=== PATIENT | female | born 1995 ===

== ENCOUNTER 2017-04-10 14:47 | Emergency (ER) | payer SELFPAY ==
[2017-04-10 14:55] VITALS: O2SAT 99
--- NOTE | 2017-04-10 16:21 | C.PDOC ---
History Of Present Illness 04/10/2017 Rosalia Mccoy is a 21 year old female, who presents to the emergency department complaining of scattered rash, described as itchy and painful, for the past five months. Patient's mother states they went [place] of the [place] to treat the skin irritation and was diagnosed as an allergic reaction, however no relief was made after treatment with medication. Patient mother notes the rash began on the vagina area and scattered down her legs. Mother also reports that pus drains from the rashes when they erupt. Patient denies chest pain, shortness of breath, headache, fever, chills, cough, nausea, vomiting, diarrhea, abdominal pain, dizziness or other complaints. Time Seen by Provider: 04/10/17 15:37 Chief Complaint (Nursing): Abnormal Skin Integrity History Per: Patient, Family History/Exam Limitations: language barrier ([employer]: Ashly Stone) Onset/Duration Of Symptoms: Worse Since (five months ago) Current Symptoms Are (Timing): Worse Location Of Injury: Right: Labia, Leg, Left: Labia, Leg Quality Of Symptoms: Painful, Itching, Draining Past Medical History Reviewed: Historical Data, Nursing Documentation, Vital Signs Vital Signs: Last Vital Signs Temp 98.5 F 04/10/17 17:19 Pulse 79 04/10/17 17:19 Resp 20 04/10/17 17:19 BP 123/77 04/10/17 17:19 Pulse Ox 99 04/10/17 17:19 - Medical History PMH: HTN Family History: States: No Known Family Hx - Social History Hx Alcohol Use: No Hx Substance Use: No - Immunization History Hx Tetanus Toxoid Vaccination: No Hx Influenza Vaccination: No Hx Pneumococcal Vaccination: No Review Of Systems Except As Marked, All Systems Reviewed And Found Negative. Constitutional: Negative for: Fever Cardiovascular: Negative for: Chest Pain Respiratory: Negative for: Shortness of Breath Gastrointestinal: Negative for: Nausea, Vomiting, Abdominal Pain Skin: Positive for: Rash (scattered) Neurological: Negative for: Dizziness Physical Exam - Physical Exam Appears: Well, Non-toxic, No Acute Distress Skin: Normal Color, Warm, Dry, Rash (pustular rash and excoriation, with erythema on the bilateral upper and lower extremities and abdomen) Head: Atraumatic, Normacephalic Eye(s): bilateral: Normal Inspection, PERRL, EOMI Nose: Normal Oral Mucosa: Moist, No Drooling Tongue: Normal Appearing, No Lesions Lips: Normal Appearing, No Lesions Throat: Normal, No Erythema, No Exudate Neck: Normal, Supple Cardiovascular: Rhythm Regular, No Friction Rub, No Murmur Respiratory: Normal Breath Sounds, No Stridor, No Wheezing Back: Normal Inspection Extremity: Normal ROM Neurological/Psych: Oriented x3, Normal Speech, Normal Motor Gait: Steady ED Course And Treatment O2 Sat by Pulse Oximetry: 99 (room air) Pulse Ox Interpretation: Normal Medical Decision Making Medical Decision Making: Finger stick is 101 and sugar is normal. Will treat for hidradenitis suppurativa and possible cellulitis. Disposition - Disposition Referrals: Isabel Pacheco MD [Medical Doctor] - [facility] [Outside] Disposition: HOME/ ROUTINE Disposition Time: 17:07 Condition: GOOD Additional Instructions: Wash the wound twice a day. Apply cream. Do not scratch. Follow up with the medical doctor within 1-2 days. Return if worsened. Prescriptions: Doxycycline Hyclate 100 mg PO BID #28 cap Mupirocin 2% Cream [Bactroban 2%] 30 gm EXT BID #3 tube Instructions: MRSA (Methicillin Resistant Staphylococcus Aureus) (DC), Cellulitis (DC) Forms: [employer] (Faroese) Print Language: MAORI - Clinical Impression Clinical Impression: Hidradenitis suppurativa, Cellulitis - Scribe Statement The provider has reviewed the documentation as recorded by the Scribe 04/10/2017 Scribe Attestation: Ashly Stone MD Scribe Attestation: All medical record entries made by the Scribe were at my direction and personally dictated by me. I have reviewed the chart and agree that the record accurately reflects my personal performance of the history, physical exam, medical decision making, and the department course for this patient. I have also personally directed, reviewed, and agree with the discharge instructions and disposition.
[2017-04-10 17:22] VITALS: BP 123/77; PULSE 79; RESP 20; TEMP 98.5
== END 2017-04-10 17:22 | disposition home or self-care (01) ==
LOC: C.ER 14:47
DX: L73.2 Hidradenitis suppurativa (principal); L03.90 Cellulitis, unspecified

== ENCOUNTER 2017-11-18 11:33 | Emergency (ER) | payer OTHER ==
[2017-11-18 11:42] VITALS: O2SAT 98
--- NOTE | 2017-11-18 12:15 | C.PDOC ---
History Of Present Illness 21-year-old female, PMHx includes hypertension, presents to the emergency department with complaints of an itchy rash all over her body for the past 4 days. Patient denies any new foods, lotions, soaps, detergents or new medications. She has no known allergies. No fever or chills, no throat discomfort or shortness of breath. Has a Hx of similar in past. Time Seen by Provider: 11/18/17 11:45 Chief Complaint (Nursing): Abnormal Skin Integrity History Per: Patient History/Exam Limitations: no limitations Onset/Duration Of Symptoms: Days Current Symptoms Are (Timing): Still Present Past Medical History Reviewed: Historical Data, Nursing Documentation, Vital Signs Vital Signs: Last Vital Signs Temp 98.1 F 11/18/17 13:01 Pulse 74 11/18/17 13:01 Resp 20 11/18/17 13:01 BP 108/71 11/18/17 13:01 Pulse Ox 98 11/18/17 13:01 - Medical History PMH: HTN Family History: States: No Known Family Hx - Social History Hx Alcohol Use: No Hx Substance Use: No - Immunization History Hx Tetanus Toxoid Vaccination: No Hx Influenza Vaccination: No Hx Pneumococcal Vaccination: No Review Of Systems Except As Marked, All Systems Reviewed And Found Negative. Constitutional: Negative for: Fever ENT: Negative for: Nose Congestion, Throat Swelling Respiratory: Negative for: Cough, Shortness of Breath Skin: Positive for: Rash Physical Exam - Physical Exam Appears: Non-toxic, No Acute Distress Skin: Warm, Dry, Rash (Scattered pink/purple papules diffusely to flexor surface of skin. Sparing palms and soles) Head: Atraumatic, Normacephalic Eye(s): bilateral: Normal Inspection, PERRL, EOMI Nose: Normal Oral Mucosa: Moist Lips: Normal Appearing Neck: Normal ROM, Supple Chest: Symmetrical, No Tenderness Cardiovascular: Rhythm Regular, No Friction Rub, No Murmur Respiratory: Normal Breath Sounds, No Decreased Breath Sounds, No Accessory Muscle Use, No Rales, No Rhonchi, No Wheezing Gastrointestinal/Abdominal: Soft, No Tenderness Back: Normal Inspection, No CVA Tenderness Extremity: Normal ROM, No Deformity, No Swelling Neurological/Psych: Oriented x3, Normal Speech, Normal Motor Gait: Steady ED Course And Treatment O2 Sat by Pulse Oximetry: 98 (RA) Pulse Ox Interpretation: Normal Disposition - Disposition Referrals: [facility] [Outside] Disposition: HOME/ ROUTINE Disposition Time: 12:56 Condition: GOOD Additional Instructions: Follow up with the medical doctor within 1-2 days. Return if worsened. Prescriptions: Clotrimazole/Betamethasone [Lotrisone] 15 gm EXT BID #3 tube DiphenhydrAMINE [Benadryl] 25 mg PO QID #28 cap Instructions: Eczema (Atopic Dermatitis) Forms: [email or web address] (Telugu) Print Language: CHADIAN - POA Present On Arrival: None - Clinical Impression Clinical Impression: Eczema - Scribe Statement The provider has reviewed the documentation as recorded by the Scribe (Magdy Paz) All medical record entries made by the Scribe were at my direction and personally dictated by me. I have reviewed the chart and agree that the record accurately reflects my personal performance of the history, physical exam, medical decision making, and the department course for this patient. I have also personally directed, reviewed, and agree with the discharge instructions and disposition.
[2017-11-18 13:02] VITALS: BP 108/71; PULSE 74; RESP 20; TEMP 98.1
== END 2017-11-18 13:05 | disposition home or self-care (01) ==
LOC: C.ER 11:33
DX: L30.9 Dermatitis, unspecified (principal)

== ENCOUNTER 2017-12-25 09:49 | Emergency (ER) | payer OTHER ==
[2017-12-25 10:11] VITALS: RESP 16
--- NOTE | 2017-12-25 11:23 | C.PDOC ---
History Of Present Illness 22 year old female presents to the ED for evaluation of a chronic rash to her arms, armpits, legs and thighs which began when she moved [place] ago. She notes the area is pruritic. Patient was evaluated in this ED for these symptoms in the past and was given Benadryl. Patient denies fever, chills , nausea, vomiting. Time Seen by Provider: 12/25/17 10:19 Chief Complaint (Nursing): Abnormal Skin Integrity History Per: Patient History/Exam Limitations: no limitations Onset/Duration Of Symptoms: Other (1 year ) Current Symptoms Are (Timing): Still Present Additional History Per: Patient Past Medical History Reviewed: Historical Data, Nursing Documentation, Vital Signs Vital Signs: Last Vital Signs Temp 97.6 F 12/25/17 11:31 Pulse 67 12/25/17 11:31 Resp 16 12/25/17 11:31 BP 116/77 12/25/17 11:31 Pulse Ox 98 12/25/17 14:36 - Medical History PMH: HTN Surgical History: No Surg Hx Family History: States: Unknown Family Hx - Social History Hx Alcohol Use: No Hx Substance Use: No - Immunization History Hx Tetanus Toxoid Vaccination: No Hx Influenza Vaccination: No Hx Pneumococcal Vaccination: No Review Of Systems Constitutional: Negative for: Fever, Chills Gastrointestinal: Negative for: Nausea, Vomiting Skin: Positive for: Rash (chronic, to arms, armpits, legs and thighs ) Physical Exam - Physical Exam Appears: Non-toxic, No Acute Distress, Other (morbidly obese ) Skin: Rash (papular, to torsoe, arms and legs with some dry patches on back. sparing of hands and feet ) Head: Atraumatic, Normacephalic Eye(s): bilateral: Normal Inspection Ear(s): Bilateral: Normal Nose: Normal, No Discharge Oral Mucosa: Moist Throat: Normal, No Erythema, No Exudate Neck: Supple Chest: Symmetrical, No Deformity, No Tenderness Cardiovascular: Rhythm Regular, No Murmur Respiratory: Normal Breath Sounds, No Rales, No Rhonchi, No Wheezing Gastrointestinal/Abdominal: Soft, No Tenderness, No Guarding, No Rebound, Other (obese ) Extremity: Normal ROM, Capillary Refill (less than 2 seconds ) Neurological/Psych: Oriented x3, Normal Speech, Normal Cognition ED Course And Treatment O2 Sat by Pulse Oximetry: 98 (on RA) Pulse Ox Interpretation: Normal Medical Decision Making Medical Decision Making: Progress: On reassessment, patient is resting comfortably, showing no signs of respiratory distress and is stable for discharge. Patient is advised to follow up with PMD within 1-2 days for further evaluation and/or return to the ED if sx persist or worsen. Disposition Counseled Patient/Family Regarding: Need For Followup, Rx Given - Disposition Referrals: [facility] [Outside] Disposition: HOME/ ROUTINE Disposition Time: 11:21 Condition: STABLE Additional Instructions: Siga en la clinica. Prescriptions: DiphenhydrAMINE [Benadryl] 50 mg PO TID #9 cap Instructions: Skin Rash (DC) Forms: Gen Discharge Inst Mexican, [employer] (Mexican) - Clinical Impression Clinical Impression: Rash in adult - Scribe Statement The provider has reviewed the documentation as recorded by the Scribe (Janeth Salcedo) Provider Attestation: All medical record entries made by the Scribe were at my direction and personally dictated by me. I have reviewed the chart and agree that the record accurately reflects my personal performance of the history, physical exam, medical decision making, and the department course for this patient. I have also personally directed, reviewed, and agree with the discharge instructions and disposition.
[2017-12-25 11:32] VITALS: BP 116/77; PULSE 67; TEMP 97.6
[2017-12-25 14:37] VITALS: O2SAT 98
== END 2017-12-25 11:42 | disposition home or self-care (01) ==
LOC: C.ER 09:49
DX: R21 Rash and other nonspecific skin eruption (principal)

== ENCOUNTER 2018-10-13 11:42 | Emergency (ER) | payer OTHER ==
[2018-10-13 12:00] VITALS: RESP 18; TEMP 98.6; O2SAT 100
[2018-10-13] MEDS ORDERED: Sodium Chloride 0.9% 1,000 ML IV ONE (12:19)
[2018-10-13 12:46] LABS: BASO % 0.4 % (0.0-2.0); EOS # 0.1 K/uL (0.0-0.7); EOS % 1.2 % (0.0-4.0); HEMOGLOBIN 12.7 g/dL (11.0-16.0); LYMPH # 2.7 K/uL (1.0-4.3); LYMPH % 26.1 % (20.0-40.0); MEAN CELL VOLUME 89.4 fL (81.0-99.0); MEAN CORPUSCULAR HEMOGLOBIN 29.9 pg (27.0-31.0); MEAN CORPUSCULAR HGB CONC 33.4 g/dL (33.0-37.0); MEAN PLATELET VOLUME 8.1 fL (7.2-11.7); MONO # 0.4 K/uL (0.0-0.8); MONO % 3.5 % (0.0-10.0); NEUT # 7.1 K/uL (1.8-7.0); NEUT % 68.8 % (50.0-75.0); NRBC % 0.1 % (0.0-2.0); RBC 4.26 Mil/uL (3.80-5.20); RED CELL DISTRIBUTION WIDTH 13.8 % (11.5-14.5); WHITE BLOOD COUNT 10.4 K/uL (4.8-10.8)
[2018-10-13 12:51] LABS: HCG,QUALITATIVE URINE NEGATIVE (NEGATIVE)
[2018-10-13 12:55] LABS: SQUAMOUS EPITHIAL 4 /hpf (0-5); URINE BACTERIA RARE (<OCC)
[2018-10-13 12:56] LABS: URINE BILIRUBIN NEGATIVE (NEGATIVE); URINE BLOOD 3+ (NEGATIVE); URINE CLARITY Hazy (Clear); URINE COLOR Yellow (YELLOW); URINE GLUCOSE (UA) NORMAL (Normal); URINE LEUKOCYTE ESTERASE NEG Leu/uL (Negative); URINE PROTEIN NEGATIVE (NEGATIVE); URINE UROBILINOGEN NORMAL mg/dL (0.2-1.0)
[2018-10-13 13:01] LABS: ALB/GLOB RATIO 1.3 (1.0-2.1); ALBUMIN 4.6 g/dL (3.5-5.0); ALT/SGPT 16 U/L (9-52); AST/SGOT 30 U/L (14-36); BLOOD UREA NITROGEN 12 mg/dL (7-17); CALCIUM 9.1 mg/dl (8.6-10.4); GFR NON-AFRICAN AMERICAN > 60
[2018-10-13 13:30] VITALS: BP 152/82; PULSE 82
--- NOTE | 2018-10-13 16:38 | C.PDOC ---
History Of Present Illness 22-year-old female presents to the ED for evaluation after experiencing heavy menses for the last two weeks. Patient reports havinhg "a lot of blood clots" and states that she has been using a lot of maxi pads per day. Shes also complaining of some pelvic cramping and states that she feels lightheaded and generalized weakness. She denies any possibility of . She denies fever, dysuria, nausea, vomiting, diarrhea. Time Seen by Provider: 10/13/18 11:55 Chief Complaint (Nursing): Female Genitourinary History Per: Patient History/Exam Limitations: no limitations Onset/Duration Of Symptoms: Other (two weeks ) Current Symptoms Are (Timing): Still Present Quality Of Discomfort: Cramping Associated Symptoms: denies: Fever, Chills, Nausea, Vomiting, Urinary Symptoms Abnormal Vaginal Bleeding: Yes Last Menstral Period: current, for two weeks Past Medical History Reviewed: Historical Data, Nursing Documentation, Vital Signs Vital Signs: Last Vital Signs Temp 98.6 F 10/13/18 13:29 Pulse 82 10/13/18 13:29 Resp 18 10/13/18 13:29 BP 152/82 H 10/13/18 13:29 Pulse Ox 100 10/13/18 13:29 - Medical History PMH: HTN Surgical History: No Surg Hx Family History: States: No Known Family Hx - Social History Hx Alcohol Use: No Hx Substance Use: No - Immunization History Hx Tetanus Toxoid Vaccination: No Hx Influenza Vaccination: No Hx Pneumococcal Vaccination: No Review Of Systems Constitutional: Positive for: Weakness. Negative for: Fever, Chills Gastrointestinal: Negative for: Nausea, Vomiting, Abdominal Pain, Diarrhea Genitourinary: Positive for: Vaginal Bleeding, Pelvic Pain. Negative for: Dysuria Skin: Negative for: Rash Neurological: Positive for: Other (lightheadedness, weakness) Physical Exam - Physical Exam Appears: Well, Non-toxic, No Acute Distress Skin: Normal Color, Warm, Dry, No Pale, No Rash Head: Normacephalic Eye(s): bilateral: Normal Inspection Oral Mucosa: Moist Neck: Supple Cardiovascular: Rhythm Regular Respiratory: Normal Breath Sounds, No Rales, No Rhonchi, No Wheezing Gastrointestinal/Abdominal: Normal Exam, Bowel Sounds, Soft, No Tenderness Extremity: Normal ROM Neurological/Psych: Oriented x3 ED Course And Treatment - Laboratory Results Result Diagrams: 10/13/18 12:42 10/13/18 12:42 Lab Results: Total Bilirubin 0.3 mg/dL (0.2-1.3) 10/13/18 12:42 AST 30 U/L (14-36) 10/13/18 12:42 ALT 16 U/L (9-52) 10/13/18 12:42 Alkaline Phosphatase 61 U/L (38-126) 10/13/18 12:42 Total Protein 8.2 g/dL (6.3-8.3) 10/13/18 12:42 Albumin 4.6 g/dL (3.5-5.0) 10/13/18 12:42 Globulin 3.6 gm/dL (2.2-3.9) 10/13/18 12:42 Albumin/Globulin Ratio 1.3 (1.0-2.1) 10/13/18 12:42 Urine Color Yellow (YELLOW) 10/13/18 12:42 Urine Clarity Hazy (Clear) 10/13/18 12:42 Urine pH 5.0 (5.0-8.0) 10/13/18 12:42 Ur Specific Campbell 1.019 (1.003-1.030) 10/13/18 12:42 Urine Protein Negative mg/dL (NEGATIVE) 10/13/18 12:42 Urine Glucose (UA) Normal mg/dL (Normal) 10/13/18 12:42 Urine Ketones Negative mg/dL (NEGATIVE) 10/13/18 12:42 Urine Blood 3+ (NEGATIVE) H 10/13/18 12:42 Urine Nitrate Negative (NEGATIVE) 10/13/18 12:42 Urine Bilirubin Negative (NEGATIVE) 10/13/18 12:42 Urine Urobilinogen Normal mg/dL (0.2-1.0) 10/13/18 12:42 Ur Leukocyte Esterase Neg Isma/uL (Negative) 10/13/18 12:42 Urine WBC (Auto) 1 /hpf (0-5) 10/13/18 12:42 Urine RBC (Auto) 1 /hpf (0-3) 10/13/18 12:42 Ur Squamous Epith Cells 4 /hpf (0-5) 10/13/18 12:42 Urine Bacteria Rare (<OCC) 10/13/18 12:42 Urine HCG, Qual Negative (NEGATIVE) 10/13/18 12:42 Urine HCG, Qual Negative (NEGATIVE) 10/13/18 12:42 O2 Sat by Pulse Oximetry: 100 (on RA) Pulse Ox Interpretation: Normal Progress Note: Blood work, UA, Upreg ordered and reviewed. Patient given IV NS bolus, PO Tylenol. Reevaluation Time: 13:30 Reassessment Condition: Improved (Patient reassessed, is resting comfortably and states she feels better. Blood work WNL, neg for anemia. Patient given Rx for Provera and was instructed to follow up with video system repairer withn 1 week without fail. She understands she should return to ED if symptoms worsen.) Disposition Counseled Patient/Family Regarding: Studies Performed, Diagnosis, Need For Followup - Disposition Referrals: [facility] [Outside] [facility] [Outside] Disposition: HOME/ ROUTINE Disposition Time: 13:30 Condition: STABLE Additional Instructions: FOLLOW UP WITH FUSION OPERATOR WITHIN 1 WEEK USE MEDICATION DIRECTED RETURN TO EMERGENCY ROOM IF SYMPTOMS BECOME WORSEN SEGUIR CON OB / DIRECTOR STUDENT UNION DENTRO DE 1 SEMANA UTILICE MEDICAMENTOS SHERRI SE DIRIGE VUELVA A LA SHRADDHA DE EMERGENCIA SI LOS SNTOMAS SE EMPARAN Prescriptions: Medroxyprogesterone Acetate [Provera] 2.5 mg PO DAILY #20 tablet Instructions: Heavy Periods (DC) Forms: [email or web address] (Angolan) Print Language: ISRAELI - Clinical Impression Clinical Impression: Menorrhagia - Scribe Statement The provider has reviewed the documentation as recorded by the Scribe (Janeth Salcedo) Provider Attestation: All medical record entries made by the Scribe were at my direction and p ersonally dictated by me. I have reviewed the chart and agree that the record accurately reflects my personal performance of the history, physical exam, medical decision making, and the department course for this patient. I have also personally directed, reviewed, and agree with the discharge instructions and disposition.
== END 2018-10-13 13:30 | disposition home or self-care (01) ==
LOC: C.ER 11:42
DX: N92.0 Excessive and frequent menstruation with regular cycle (principal); I10 Essential (primary) hypertension
CPT/HCPCS: 80053; 81001; 84703; 85025; 96360; 99284; J7030

== ENCOUNTER → 2018-10-24 15:11 | Emergency (ER) | payer SELFPAY | END | disposition left against medical advice (07) | LOC: C.ER 15:11 | DX: Z02.89 Encounter for other administrative examinations (principal); R51 Headache ==

== ENCOUNTER 2018-10-26 11:39 | Emergency (ER) | payer OTHER ==
[2018-10-26 11:43] VITALS: RESP 18; TEMP 98.8; O2SAT 100
--- NOTE | 2018-10-26 12:11 | C.PDOC ---
History Of Present Illness 22 year old female with history of obesity presents to ED with complaint of right knee pain , left sided back pain, and right sided headache for the last 3 weeks. Patient describes the knee pain as sharp, located behind the right knee, and has difficulty bearing weight secondary to pain. She describes the back pain as dull, located in left thoracic para-spinal muscles, and worse with movement. Headache is throbbing and located at the right temporal area. Patient says she has also been experiencing dysuria. Patient states that she needs a new prescription for her glasses and that her headache worsens when she wears her glasses. She is not taking any medication for the pain. 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 She denies any trauma or injury, vision changes, dizziness, SOB, chest pain, hemoptysis, abdominal pain, nausea, vomiting, diarrhea, bowel or bladder incontinence, saddle anesthesia, calf swelling, calf pain, pleuritic pain, cough, jaw claudication, hematuria. 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) Onset/Duration Of Symptoms: Other (3 weeks) Current Symptoms Are (Timing): Still Present - Knee Currently Unable To: Bear Weight Past Medical History Reviewed: Historical Data, Nursing Documentation, Vital Signs Vital Signs: Last Vital Signs Temp 98.8 F 10/26/18 11:41 Pulse 100 H 10/26/18 11:41 Resp 18 10/26/18 11:41 BP 141/84 10/26/18 11:41 Pulse Ox 100 10/26/18 11:41 - Medical History PMH: HTN Surgical History: No Surg Hx Family History: States: Unknown Family Hx - Social History Hx Alcohol Use: No Hx Substance Use: No - Immunization History Hx Tetanus Toxoid Vaccination: No Hx Influenza Vaccination: No Hx Pneumococcal Vaccination: No Review Of Systems Constitutional: Negative for: Fever, Chills, Weakness Eyes: Negative for: Vision Change Cardiovascular: Negative for: Chest Pain, Palpitations Respiratory: Negative for: Cough, Shortness of Breath, Hemoptysis Gastrointestinal: Negative for: Nausea, Vomiting, Abdominal Pain Genitourinary: Positive for: Dysuria. Negative for: Incontinence, Hematuria Musculoskeletal: Positive for: Back Pain (dull, located on the left thoracic paraspinal muscles), Leg Pain (behind the right knee) Neurological: Positive for: Headache (throbbing, located on the right temporal area). Negative for: Weakness, Numbness, Dizziness Physical Exam - Physical Exam Appears: Well, Non-toxic, No Acute Distress, Other (morbidly obese) Skin: Normal Color, Warm, Dry Head: Atraumatic, Normacephalic, No Tenderness Eye(s): bilateral: Normal Inspection, PERRL, EOMI Nose: Normal Oral Mucosa: Moist Neck: Normal ROM, Supple Chest: Symmetrical, No Deformity Cardiovascular: Rhythm Regular, No Murmur Respiratory: Normal Breath Sounds, No Accessory Muscle Use, No Rales, No Rhonchi, No Wheezing Gastrointestinal/Abdominal: Soft, No Tenderness Back: Normal Inspection, No CVA Tenderness, No Vertebral Tenderness, Paraspinal Tenderness (left paraspinal muscles) Extremity: Normal ROM, Tenderness (right knee in the medial popliteal fossa), No Calf Tenderness, Capillary Refill (<2 seconds), No Deformity Extremity: Right: Painful To Bear Weight (right knee) Pulses: Left Radial: Normal, Right Radial: Normal, Left Dorsalis Pedis: Normal, Right Dorsalis Pedis: Normal Neurological/Psych: Oriented x3, Normal Speech, Normal Cognition, Normal Motor, Normal Sensation Gait: Steady (without assistance) ED Course And Treatment O2 Sat by Pulse Oximetry: 100 (RA) - Other Rad Ribs and Chest X-ray X-Ray: Interpreted by Me, Viewed By Me Interpretation: Accession No. : [id number]. Patient Name / ID : IFTIKHAR ORTIZ / [id number]. Exam Date : 10/26/2018 12:21:32 ( Approved ). Study Comment : Sex / Age : F / 22Y. Creator : Johnnie Reyes MD. Dictator : Johnnie Reyes MD. Equipment Detailer : Bit Gatherer : Johnnie Reyes MD. Approver2 : Report Date : 10/26/2018 14:39:24. My Comment : . Date of service: 10/26/2018. PROCEDURE: Radiographs of the Chest and Left Ribs. HISTORY: rib pain. COMPARISON: None available. TECHNIQUE: Frontal radiograph of the chest and multiple oblique radiographs of the left ribs were obtained. FINDINGS: LEFT RIBS: No fracture or focal lesion visualized. LUNGS: Poor inspiration with low lung volumes, crowded bronchovascular markings and minimal bibasilar atelectasis. PLEURA: No pneumothorax or pleural fluid. CARDIOVASCULAR: Normal cardiac size. No pulmonary vascular congestion. No aortic atherosclerotic calcification present. OTHER FINDINGS: None. IMPRESSION: Unremarkable radiographs of the chest and left ribs. No left rib fracture. Knee X-ray X-Ray: Interpreted by Me, Viewed By Me Interpretation: Accession No. : [id number]. Patient Name / ID : IFTIKHAR ORTIZ / [id number]. Exam Date : 10/26/2018 12:21:22 ( Approved ). Study Comment : Sex / Age : F / 22Y. Creator : Johnnie Reyes MD. Dictator : Johnnie Reyes MD. Equipment Detailer : Bit Gatherer : Johnnie Reyes MD. Approver2 : Report Date : 10/26/2018 14:34:10. My Comment : . Date of service: 10/26/2018. PROCEDURE: Right knee. HISTORY: knee pain. COMPARISON: None. FINDINGS: BONES: Normal. No fracture. JOINTS: Joint spaces preserved. No significant osteoarthritis. JOINT EFFUSION: No significant joint effusion. OTHER FINDINGS: None. IMPRESSION: No evidence of acute displaced fracture nor dislocation. Medical Decision Making Medical Decision Making: Impression, Back pain, knee pain, and headache Plan: - Ribs and CXR - Venous Duplex Right Leg - Right Knee XR - UA - Toradol 1406: Patient reports feeling better. Resolution of pain with medication. Prelim venous duplex negative for DVT. Imaging and labwork unremarkable Diagnostic testing results and plan of care discussed with patient. Strict instructions given regarding prescription use, importance of followup, and signs/symptoms to return to ER including SOB, chest pain, fever, chills, or any other new/worsening symptoms. Pt verbalized understanding of discussion. Patient is A&Ox3, ambulating with steady gait, with vital signs stable for discharge. Disposition - Disposition Referrals: [facility] at [facility] [Outside] Luis Moraes III, MD [Staff Provider] - Disposition: HOME/ ROUTINE Disposition Time: 14:35 Condition: IMPROVED Additional Instructions: Ibuprofeno cada 8 horas segn sea necesario para el dolor. Flexerilo cada 12 horas segn sea necesario para el espasmo muscular. Seguimiento con oculista para nuevos anteojos recetados. Seguimiento con ortopedia en 2 holder. Seguimiento con primaria / clnica dentro de 2 holder. Regrese a la cheryl de emergencias con cualquier sntoma nuevo o que empeore Prescriptions: Cyclobenzaprine [Cyclobenzaprine HCl] 10 mg PO Q12H PRN #14 tab PRN Reason: Muscle Spasm Ibuprofen [Motrin Tab] 600 mg PO Q8 #30 tab Instructions: Tendonitis, Muscle Spasms (DC), Knee Pain (DC) Forms: Gen Discharge Inst Turkish, [employer] (Turkish), Work Excuse Print Language: CHINESE - Clinical Impression Clinical Impression: Knee pain, right, Muscle spasm, Tension headache - PA / GRADUATE TEACHING ASSISTANT / Resident Statement MD/DO has reviewed & agrees with the documentation as recorded. (Kaylyn Boyd) - Scribe Statement The provider has reviewed the documentation as recorded by the Scribe (Kaylyn Boyd) All medical record entries made by the Scribe were at my direction and personally dictated by me. I have reviewed the chart and agree that the record accurately reflects my personal performance of the history, physical exam, medical decision making, and the department course for this patient. I have also personally directed, reviewed, and agree with the discharge instructions and disposition.
[2018-10-26 13:48] LABS: SQUAMOUS EPITHIAL 1 /hpf (0-5); URINE BACTERIA RARE (<OCC); URINE BILIRUBIN NEGATIVE (NEGATIVE); URINE BLOOD NEGATIVE (NEGATIVE); URINE CLARITY Clear (Clear); URINE COLOR Straw (YELLOW); URINE GLUCOSE (UA) NORMAL (Normal); URINE LEUKOCYTE ESTERASE TRACE Leu/uL (Negative); URINE PROTEIN NEGATIVE (NEGATIVE); URINE UROBILINOGEN NORMAL mg/dL (0.2-1.0)
[2018-10-26 14:13] VITALS: BP 140/79; PULSE 60
--- NOTE | 2018-10-26 14:37 | RAD ---
Date of service: 10/26/2018 PROCEDURE: Right knee HISTORY: knee pain COMPARISON: None. FINDINGS: BONES: Normal. No fracture. JOINTS: Joint spaces preserved. No significant osteoarthritis. JOINT EFFUSION: No significant joint effusion OTHER FINDINGS: None. IMPRESSION: No evidence of acute displaced fracture nor dislocation.
--- NOTE | 2018-10-26 14:42 | RAD ---
Date of service: 10/26/2018 PROCEDURE: Radiographs of the Chest and Left Ribs. HISTORY: rib pain COMPARISON: None available. TECHNIQUE: Frontal radiograph of the chest and multiple oblique radiographs of the left ribs were obtained. FINDINGS: LEFT RIBS: No fracture or focal lesion visualized. LUNGS: Poor inspiration with low lung volumes, crowded bronchovascular markings and minimal bibasilar atelectasis PLEURA: No pneumothorax or pleural fluid. CARDIOVASCULAR: Normal cardiac size. No pulmonary vascular congestion. No aortic atherosclerotic calcification present OTHER FINDINGS: None. IMPRESSION: Unremarkable radiographs of the chest and left ribs. No left rib fracture.
--- NOTE | 2018-10-27 10:02 | VASCLAB ---
Date of service: 10/26/2018 PROCEDURE: Right Lower Extremity Venous Duplex Exam. HISTORY: posterior knee pain, swelling PRIORS: None. TECHNIQUE: Right common femoral, femoral, popliteal and posterior tibial, peroneal and great saphenous veins were evaluated. Flow was assessed with color Doppler, compressibility, assessment of phasic flow and augmentation response. Report prepared by QI Patel, RVT FINDINGS: RIGHT: 1. Common Femoral Vein: 1.1. Compressibility - Fully compressible: Thrombus - None: Flow - Phasic: Augmentation -Normal: Reflux - None. 2. Femoral Vein: 2.1. Compressibility - Fully compressible: Thrombus - None: Flow - Phasic: Augmentation -Normal: Reflux - None. 3. Popliteal Vein: 3.1. Compressibility - Fully compressible: Thrombus - None: Flow - Phasic: Augmentation -Normal: Reflux - None. 4. Posterior Tibial Vein: 4.1. Compressibility - Fully compressible: Thrombus - None: Flow - Phasic: Augmentation -Normal: Reflux - None. 5. Peroneal Vein: 5.1. Compressibility - Fully compressible: Thrombus - None: Flow - Phasic: Augmentation -Normal: Reflux - None. 6. Great Saphenous Vein: 6.1. Compressibility - Fully compressible: Thrombus -None: Flow - Phasic: Augmentation - Normal: Reflux - None. OTHER FINDINGS: IMPRESSION: No evidence of deep or superficial vein thrombosis of the right lower extremity with excellent venous flow. Normal valve function noted of the right side. Normal venous flow noted in the left common femoral vein.
== END 2018-10-26 14:43 | disposition home or self-care (01) ==
LOC: C.ER 11:39
DX: M25.561 Pain in right knee (principal); M62.838 Other muscle spasm; G44.209 Tension-type headache, unspecified, not intractable
CPT/HCPCS: 71101; 73560; 81001; 81025; 93971; 96372; 99284; J1885

== ENCOUNTER 2018-10-29 11:00 | Emergency (ER) | payer OTHER ==
[2018-10-29] MEDS ORDERED: Sodium Chloride 0.9% 1,000 ML IV ONE (11:49)
[2018-10-29 11:51] LABS: SQUAMOUS EPITHIAL 1 /hpf (0-5); URINE BACTERIA RARE (<OCC); URINE BILIRUBIN NEGATIVE (NEGATIVE); URINE BLOOD NEGATIVE (NEGATIVE); URINE CLARITY Clear (Clear); URINE COLOR Yellow (YELLOW); URINE GLUCOSE (UA) NORMAL (Normal); URINE LEUKOCYTE ESTERASE NEG Leu/uL (Negative); URINE PROTEIN 2+ mg/dL (NEGATIVE); URINE UROBILINOGEN NORMAL mg/dL (0.2-1.0)
[2018-10-29 12:02] LABS: BASO # 0.1 K/uL (0.0-0.2); BASO % 0.4 % (0.0-2.0); EOS # 0.1 K/uL (0.0-0.7); EOS % 0.9 % (0.0-4.0); HEMOGLOBIN 12.2 g/dL (11.0-16.0); MEAN CELL VOLUME 89.4 fL (81.0-99.0); MEAN CORPUSCULAR HEMOGLOBIN 29.3 pg (27.0-31.0); MEAN CORPUSCULAR HGB CONC 32.7 g/dL (33.0-37.0); MEAN PLATELET VOLUME 7.9 fL (7.2-11.7); MONO # 0.6 K/uL (0.0-0.8); MONO % 4.8 % (0.0-10.0); NEUT # 8.9 K/uL (1.8-7.0); NEUT % 76.9 % (50.0-75.0); RBC 4.17 Mil/uL (3.80-5.20); RED CELL DISTRIBUTION WIDTH 14.1 % (11.5-14.5); WHITE BLOOD COUNT 11.6 K/uL (4.8-10.8)
[2018-10-29] MEDS ORDERED: Sodium Chloride 0.9% 1,000 ML ONE (12:06)
[2018-10-29 12:20] LABS: ALB/GLOB RATIO 1.3 (1.0-2.1); ALBUMIN 4.5 g/dL (3.5-5.0); ALT/SGPT 20 U/L (9-52); BLOOD UREA NITROGEN 16 mg/dL (7-17); CALCIUM 8.9 mg/dl (8.6-10.4); GFR NON-AFRICAN AMERICAN > 60; LIPASE 45 U/L (23-300)
[2018-10-29 12:34] LABS: AST/SGOT 29 U/L (14-36)
--- NOTE | 2018-10-29 13:18 | CT ---
Date of service: 10/29/2018 PROCEDURE: CT Abdomen and Pelvis without intravenous contrast HISTORY: left flank pain with dysuria COMPARISON: None. TECHNIQUE: Without contrast.. Contrast dose: 0 Radiation dose: Total exam DLP = 1378.94 mGy-cm. This CT exam was performed using one or more of the following dose reduction techniques: Automated exposure control, adjustment of the mA and/or kV according to patient size, and/or use of iterative reconstruction technique. FINDINGS: LOWER THORAX: Unremarkable. LIVER: Unremarkable. No gross lesion or ductal dilatation. GALLBLADDER AND BILE DUCTS: Unremarkable. PANCREAS: Unremarkable. No gross lesion or ductal dilatation. SPLEEN: Unremarkable. ADRENALS: Unremarkable. No mass. KIDNEYS AND URETERS: Unremarkable. No hydronephrosis. No solid mass. VASCULATURE: Unremarkable. No aortic aneurysm. No aortic atherosclerotic calcification or mural plaque present. BOWEL: Unremarkable. No obstruction. No gross mural thickening. APPENDIX: Unremarkable. Normal appendix. PERITONEUM: Unremarkable. No free fluid. No free air. LYMPH NODES: Unremarkable. No enlarged lymph nodes. BLADDER: Unremarkable. REPRODUCTIVE: Unremarkable uterus. In the cul-de-sac there is a vaguely rounded fluid collection measuring approximately 7.5 cm in greatest dimension. This may represent an ovarian cyst. Correlation with transvaginal pelvic ultrasound examination is advised. BONES: No acute fracture. OTHER FINDINGS: None. IMPRESSION: 7.5 cm vaguely rounded fluid collection in the cul-de-sac, possibly an ovarian cyst. Correlate with transvaginal pelvic ultrasound examination. No evidence of urinary calculus or urinary tract obstruction. No additional abnormality.
[2018-10-29 13:22] VITALS: BP 106/69; PULSE 63; RESP 18; TEMP 98.5; O2SAT 100
--- NOTE | 2018-10-29 18:37 | C.PDOC ---
Chief Complaint (Nursing): Back Pain Past Medical History Vital Signs: Last Vital Signs Temp 98.5 F 10/29/18 13:21 Pulse 63 10/29/18 13:21 Resp 18 10/29/18 13:21 BP 106/69 10/29/18 13:21 Pulse Ox 100 10/29/18 13:21 - Medical History PMH: HTN Family History: States: Unknown Family Hx - Social History Hx Alcohol Use: No Hx Substance Use: No - Immunization History Hx Tetanus Toxoid Vaccination: No Hx Influenza Vaccination: No Hx Pneumococcal Vaccination: No ED Course And Treatment - Laboratory Results Result Diagrams: 10/29/18 11:59 10/29/18 11:59 Lab Results: Total Bilirubin 0.4 mg/dL (0.2-1.3) 10/29/18 11:59 AST 29 U/L (14-36) 10/29/18 11:59 ALT 20 U/L (9-52) 10/29/18 11:59 Alkaline Phosphatase 63 U/L (38-126) 10/29/18 11:59 Total Protein 8.2 g/dL (6.3-8.3) 10/29/18 11:59 Albumin 4.5 g/dL (3.5-5.0) 10/29/18 11:59 Globulin 3.6 gm/dL (2.2-3.9) 10/29/18 11:59 Albumin/Globulin Ratio 1.3 (1.0-2.1) 10/29/18 11:59 Lipase 45 U/L (23-300) 10/29/18 11:59 Urine Color Yellow (YELLOW) 10/29/18 11:44 Urine Clarity Clear (Clear) 10/29/18 11:44 Urine pH 5.0 (5.0-8.0) 10/29/18 11:44 Ur Specific [place] 1.006 (1.003-1.030) 10/29/18 11:44 Urine Protein 2+ mg/dL (NEGATIVE) H 10/29/18 11:44 Urine Glucose (UA) Normal mg/dL (Normal) 10/29/18 11:44 Urine Ketones Negative mg/dL (NEGATIVE) 10/29/18 11:44 Urine Blood Negative (NEGATIVE) 10/29/18 11:44 Urine Nitrate Negative (NEGATIVE) 10/29/18 11:44 Urine Bilirubin Negative (NEGATIVE) 10/29/18 11:44 Urine Urobilinogen Normal mg/dL (0.2-1.0) 10/29/18 11:44 Ur Leukocyte Esterase Neg Isma/uL (Negative) 10/29/18 11:44 Urine WBC (Auto) 1 /hpf (0-5) 10/29/18 11:44 Urine RBC (Auto) 1 /hpf (0-3) 10/29/18 11:44 Ur Squamous Epith Cells 1 /hpf (0-5) 10/29/18 11:44 Urine Bacteria Rare (<OCC) 10/29/18 11:44 O2 Sat by Pulse Oximetry: 100 Disposition - Disposition Referrals: Isabel Pacheco MD [Medical Doctor] - Disposition: HOME/ ROUTINE Disposition Time: 13:30 Condition: IMPROVED Additional Instructions: CIPRIANO FREITAS, thank you for letting us take care of you today. The emergency medical care you received today was directed at your acute symptoms. If you were prescribed any medication, please fill it and take as directed. It may take several days for your symptoms to resolve. Return to the Emergency Department if your symptoms worsen, do not improve, or if you have any other problems. Please contact your doctor or call one of the physicians/clinics you have been referred to that are listed on the Patient Visit Information form that is included in your discharge packet. Bring any paperwork you were given at d ischarge with you along with any medications you are taking to your follow up visit. Our treatment cannot replace ongoing medical care by a primary care provider outside of the emergency department. Thank you for allowing the [facility] team to be part of your care today. Follow up with your primary care doctor in 3-5 days for re-evaluation and further management. CIPRIANO FREITAS, patrick por dejarnos cuidar de usted hoy. La atencin mdica de emergencia que recibi hoy se dirigi a harley sntomas agudos. Si le recetaron algn medicamento, llnelo y tmelo segn las indicaciones. Los sntomas pueden tardar varios holder en resolverse. Regrese al Departamento de Emergencias si harley sntomas empeoran, no mejoran o si tiene otros problemas. Comunquese con schmidt mdico o llame a ana de los mdicos / clnicas a los que collins sido referido que figuran en el formulario de Informacin de visita al paciente que se incluye en schmidt paquete de moreno. Lleve todos los documentos que le e ntregaron al momento del moreno junto con todos los medicamentos que est tomando para schmidt visita de seguimiento. Nuestro tratamiento no puede reemplazar la atencin mdica continua por un proveedor de atencin primaria fuera del departamento de emergencias. Patrick por permitir que el equipo de [facility] [employer] sea parte de schmidt atencin hoy. Yajaira un seguimiento con schmidt mdico de atencin primaria en 3 a 5 holder para lianna reevaluacin y manejo adicional. Prescriptions: Ibuprofen [Motrin] 600 mg PO Q6 PRN #20 tab PRN Reason: Pain, Moderate (4-7) Instructions: Ovarian Cyst (DC) Forms: [employer] (Luxembourgish) Print Language: PORTUGUESE - Clinical Impression Clinical Impression: Ovarian cyst
== END 2018-10-29 14:00 | disposition home or self-care (01) ==
LOC: C.ER 11:00
DX: N83.209 Unspecified ovarian cyst, unspecified side (principal)
CPT/HCPCS: 74176; 80053; 81001; 81025; 83690; 85025; 87086; 96361; 96374; 99285; J1885; J7030

== ENCOUNTER 2018-11-01 15:04 | Emergency (ER) | payer OTHER ==
[2018-11-01 15:17] VITALS: BMI 42.1
[2018-11-01 15:36] LABS: HCG,QUALITATIVE URINE NEGATIVE (NEGATIVE); SQUAMOUS EPITHIAL 1 /hpf (0-5); URINE BILIRUBIN NEGATIVE (NEGATIVE); URINE CLARITY Clear (Clear); URINE COLOR Straw (YELLOW); URINE GLUCOSE (UA) NORMAL (Normal); URINE LEUKOCYTE ESTERASE NEG Leu/uL (Negative); URINE PROTEIN NEGATIVE (NEGATIVE); URINE UROBILINOGEN NORMAL mg/dL (0.2-1.0)
[2018-11-01 15:41] LABS: URINE BLOOD 1+ (NEGATIVE)
[2018-11-01] MEDS ORDERED: Sodium Chloride 0.9% 1,000 ML IV ONE ×2 (15:49→17:19)
--- NOTE | 2018-11-01 16:00 | C.PDOC ---
History Of Present Illness 22 year old presents to ED with complaint of abdominal pain since yesterday. Patient has a PMHX of hypertension. Patient is morbidly obese. Patient has a history of nausea and vomiting for one day. She says she has pain in the suprap ubic, left flank, and left chest area that is reproducible to palpation. Patient also complains of mild headache. She denies difficulty breathing , dysuria, frequency, hematuria, vaginal bleeding or discharge. Time Seen by Provider: 11/01/18 15:08 Chief Complaint (Nursing): Abdominal Pain History Per: Patient History/Exam Limitations: no limitations Onset/Duration Of Symptoms: Days (1) Current Symptoms Are (Timing): Still Present Location Of Pain/Discomfort: LUQ, Suprapubic Quality Of Discomfort: "Pain" Associated Symptoms: Nausea, Vomiting. denies: Fever, Chills, Urinary Symptoms Past Medical History Reviewed: Historical Data, Nursing Documentation, Vital Signs Vital Signs: Last Vital Signs Temp 97.9 F 11/01/18 15:17 Pulse 72 11/01/18 15:17 Resp 18 11/01/18 15:17 BP 138/86 11/01/18 15:17 Pulse Ox 97 11/01/18 15:17 - Medical History PMH: HTN Surgical History: No Surg Hx Family History: States: Unknown Family Hx - Social History Hx Alcohol Use: No Hx Substance Use: No - Immunization History Hx Tetanus Toxoid Vaccination: No Hx Influenza Vaccination: No Hx Pneumococcal Vaccination: No Review Of Systems Constitutional: Negative for: Fever, Chills, Weakness Cardiovascular: Positive for: Chest Pain (left). Negative for: Palpitations Respiratory: Negative for: Cough, Shortness of Breath Gastrointestinal: Positive for: Nausea, Vomiting, Abdominal Pain (left flank and suprapubic area) Genitourinary: Negative for: Dysuria, Frequency, Hematuria, Vaginal Discharge, Vaginal Bleeding Neurological: Positive for: Headache (mild). Negative for: Weakness, Numbness, Dizziness Physical Exam - Physical Exam Appears: Well, Non-toxic, No Acute Distress Skin: Normal Color, Warm, Dry Head: Atraumatic, Normacephalic Neck: Normal ROM, Supple Chest: Tenderness (Left anterior chest) Cardiovascular: Rhythm Regular, No Murmur, No Other (gallops) Respiratory: Normal Breath Sounds, No Rales, No Rhonchi, No Wheezing Gastrointestinal/Abdominal: Tenderness (diffuse, greatest in the suprapubic, left upper quadrant, right upper quandrant regions) Back: CVA Tenderness (bilaterally, more tenderness to the left than the right) Extremity: Pedal Edema (bilaterally, trace) Pulses: Left Radial: Normal, Right Radial: Normal Neurological/Psych: Oriented x3, Normal Speech, Normal Cognition ED Course And Treatment - Laboratory Results Result Diagrams: 11/01/18 16:00 11/01/18 16:00 Lab Results: Urine Color Straw (YELLOW) 11/01/18 15:29 Urine Clarity Clear (Clear) 11/01/18 15:29 Urine pH 5.0 (5.0-8.0) 11/01/18 15:29 Ur Specific [place] 1.006 (1.003-1.030) 11/01/18 15:29 Urine Protein Negative mg/dL (NEGATIVE) 11/01/18 15:29 Urine Glucose (UA) Normal mg/dL (Normal) 11/01/18 15:29 Urine Ketones Negative mg/dL (NEGATIVE) 11/01/18 15:29 Urine Blood 1+ (NEGATIVE) H 11/01/18 15:29 Urine Nitrate Negative (NEGATIVE) 11/01/18 15:29 Urine Bilirubin Negative (NEGATIVE) 11/01/18 15:29 Urine Urobilinogen Normal mg/dL (0.2-1.0) 11/01/18 15:29 Ur Leukocyte Esterase Neg Isma/uL (Negative) 11/01/18 15:29 Urine WBC (Auto) 1 /hpf (0-5) 11/01/18 15:29 Urine RBC (Auto) 4 /hpf (0-3) H 11/01/18 15:29 Ur Squamous Epith Cells 1 /hpf (0-5) 11/01/18 15:29 Urine HCG, Qual Negative (NEGATIVE) 11/01/18 15:29 Urine HCG, Qual Negative (NEGATIVE) 11/01/18 15:29 O2 Sat by Pulse Oximetry: 97 (RA) - CT Scan/US Abdominal US CT/US Interpretation: Accession No. : [id number]. Patient Name / ID : IFTIKHAR ORTIZ / [id number]. Exam Date : 11/01/2018 16:52:26 ( Approved ). Study Comment : Sex / Age : F / 22Y. Creator : Re Barraza MD. Dictator : Re Barraza MD. Television Maintenance Worker : Computerized Machine Fabric Cutter : Bernie Barraza MD. Approver2 : Report Date : 11/01/2018 18:09:58. My Comment : . Date of service: 11/01/2018. HISTORY: RUQ PAIN, R/O GALLSTONES. COMPARISON: CT abdomen and pelvis without contrast performed 10/29/18. TECHNIQUE: Sonographic evaluation of the right upper quadrant of the abdomen. FINDINGS: Examination limited by habitus. LIVER: Measures 17.1 cm in length. Echogenic liver may be seen in setting of hepatic parenchymal disease or fatty infiltration. No focal hepatic mass identified. The main portal vein appears patent with normal directional flow. No intrahepatic bile duct dilatation. GALLBLADDER: No gallstones. No gallbladder wall thickening or pericholecystic edema. Negative sonographic Burgess's sign as assessed by the account representative. COMMON BILE DUCT: Measures 5 mm. PANCREAS: Not well-visualized. RIGHT KIDNEY: Measures approximately 17.7 x 5.5 x 5.4 cm. No obstructing calculus or hydronephrosis. AORTA: Limited visualization appears grossly unremarkable. IVC: Limited visualization appears grossly unremarkable. OTHER FINDINGS: None . IMPRESSION: Examination limited by habitus. Echogenic liver may be seen in setting of hepatic parenchymal disease or fatty infiltration. Transvaginal/Pelvic US Other Rad Studies (CT/US): Interpreted By Me, Read By Radiologist CT/US Interpretation: Accession No. : [id number]. Patient Name / ID : IFTIKHAR ORTIZ / [id number]. Exam Date : 11/01/2018 17:09:07 ( Approved ). Study Comment : Sex / Age : F / 22Y. Creator : Re Barraza MD. Dictator : Re Barraza MD. Television Maintenance Worker : Computerized Machine Fabric Cutter : Re Barraza MD. Approver2 : Report Date : 11/01/2018 18:19:29. My Comment : . Date of service: 11/01/2018. HISTORY: pelvic pain. COMPARISON: CT abdomen and pelvis without contrast performed 10/29/18. TECHNIQUE: Real-time transabdominal pelvic ultrasound was performed. In addition a transvaginal pelvic ultrasound was necessary to better depict pelvic anatomy. FINDINGS: UTERUS: Measures 8.4 x 2.2 x 4.1 cm. Retroverted. ENDOMETRIUM: Measures 6 mm in diameter. CERVIX: No cervical abnormality identified. RIGHT OVARY: Measures 3.7 x 3.1 x 3.0 cm. Blood flow is demonstrated. 2.0 x 1.5 x 1.4 cm cyst with evidence of daughter cysts. Follic les. LEFT OVARY: Measures 2.1 x 1.5 x 3.2 cm. Blood flow is demonstrated. Follicles. FREE FLUID: Small pelvic free fluid. OTHER FINDINGS: Thick-walled 6.0 x 4.4 x 7.0 cm cystic structure noted within the cul-de-sac. IMPRESSION: Thick-walled 6.0 x 4.4 x 7.0 cm cystic structure noted within the cul-de-sac. Recommend clinical correlation and 6 week ultrasound follow-up. 2.0 x 1.5 x 1.4 cm right ovarian cyst with evidence of daughter cyst. Attention recommended on follow-up ultrasound. Small pelvic free fluid. Progress Note: Labs ordered with UA and U-preg for patient. Patient given Toradol IVP, Zofran IVP, and IV fluids. Abdominal US and Transvaginal US ordered for patient. Disposition Counseled Patient/Family Regarding: Studies Performed, Diagnosis, Need For Followup, Rx Given - Disposition Referrals: [facility] [Outside] [place] [facility] [Outside] Disposition: HOME/ ROUTINE Disposition Time: 19:00 Condition: STABLE Additional Instructions: FOLLOW UP WITH MEDICAL TERRITORY MANAGER WITHIN 1 WEEK HAVE REPEAR PELVIC ULTRASOUND IN 6 WEEKS USE PAIN MEDICATION NEEDED DRINK PLENTY OF FLUIDS RETURN TO EMERGENCY ROOM IF YOUR SYMPTOMS BECOME WORSE SEGUIR CON OB / RADIOLOGIC THERAPIST DENTRO DE 1 SEMANA WISE REPETIDO ULTRASONIDO PELVICO EN 6 SEMANAS UTILICE MEDICAMENTOS PARA EL DOLOR SHERRI SE NECESITE BEBER MUCHO LQUIDO VUELVA A LA SHRADDHA DE EMERGENCIA SI AMADA SNTOMAS SE HACEN PEOR Instructions: Nonalcoholic Fatty Liver Disease (DC), Ovarian Cyst (DC) Forms: [employer] (Serbian) Print Language: VINCENTIAN - Clinical Impression Clinical Impression: Pelvic cyst, Ovarian cyst, Fatty liver - Scribe Statement The provider has reviewed the documentation as recorded by the Scribe (Kaylyn Boyd) All medical record entries made by the Scribe were at my direction and personally dictated by me. I have reviewed the chart and agree that the record accurately reflects my personal performance of the history, physical exam, medical decision making, and the department course for this patient. I have also personally directed, reviewed, and agree with the discharge instructions and disposition.
[2018-11-01 16:04] LABS: BASO % 0.4 % (0.0-2.0); EOS # 0.1 K/uL (0.0-0.7); EOS % 0.6 % (0.0-4.0); HEMOGLOBIN 11.8 g/dL (11.0-16.0); LYMPH # 1.8 K/uL (1.0-4.3); LYMPH % 17.6 % (20.0-40.0); MEAN CELL VOLUME 86.9 fL (81.0-99.0); MEAN CORPUSCULAR HEMOGLOBIN 28.5 pg (27.0-31.0); MEAN CORPUSCULAR HGB CONC 32.8 g/dL (33.0-37.0); MEAN PLATELET VOLUME 7.9 fL (7.2-11.7); MONO # 0.5 K/uL (0.0-0.8); MONO % 4.6 % (0.0-10.0); NEUT # 7.9 K/uL (1.8-7.0); NEUT % 76.8 % (50.0-75.0); RBC 4.14 Mil/uL (3.80-5.20); RED CELL DISTRIBUTION WIDTH 13.7 % (11.5-14.5); WHITE BLOOD COUNT 10.3 K/uL (4.8-10.8)
[2018-11-01 16:42] LABS: ALB/GLOB RATIO 1.2 (1.0-2.1); ALBUMIN 4.7 g/dL (3.5-5.0); CALCIUM 9.3 mg/dl (8.6-10.4)
[2018-11-01] MEDS ORDERED: Sodium Chloride 0.9% 1,000 ML ONE (17:26)
--- NOTE | 2018-11-01 18:13 | US ---
Date of service: 11/01/2018 HISTORY: RUQ PAIN, R/O GALLSTONES COMPARISON: CT abdomen and pelvis without contrast performed 10/29/18 TECHNIQUE: Sonographic evaluation of the right upper quadrant of the abdomen. FINDINGS: Examination limited by habitus. LIVER: Measures 17.1 cm in length. Echogenic liver may be seen in setting of hepatic parenchymal disease or fatty infiltration. No focal hepatic mass identified. The main portal vein appears patent with normal directional flow. No intrahepatic bile duct dilatation. GALLBLADDER: No gallstones. No gallbladder wall thickening or pericholecystic edema. Negative sonographic Burgess's sign as assessed by the product evangelist. COMMON BILE DUCT: Measures 5 mm. PANCREAS: Not well-visualized. RIGHT KIDNEY: Measures approximately 17.7 x 5.5 x 5.4 cm. No obstructing calculus or hydronephrosis. AORTA: Limited visualization appears grossly unremarkable. IVC: Limited visualization appears grossly unremarkable. OTHER FINDINGS: None . IMPRESSION: Examination limited by habitus. Echogenic liver may be seen in setting of hepatic parenchymal disease or fatty infiltration.
--- NOTE | 2018-11-01 18:23 | US ---
Date of service: 11/01/2018 HISTORY: pelvic pain COMPARISON: CT abdomen and pelvis without contrast performed 10/29/18 TECHNIQUE: Real-time transabdominal pelvic ultrasound was performed. In addition a transvaginal pelvic ultrasound was necessary to better depict pelvic anatomy. FINDINGS: UTERUS: Measures 8.4 x 2.2 x 4.1 cm. Retroverted. ENDOMETRIUM: Measures 6 mm in diameter. CERVIX: No cervical abnormality identified. RIGHT OVARY: Measures 3.7 x 3.1 x 3.0 cm. Blood flow is demonstrated. 2.0 x 1.5 x 1.4 cm cyst with evidence of daughter cysts. Follicles. LEFT OVARY: Measures 2.1 x 1.5 x 3.2 cm. Blood flow is demonstrated. Follicles. FREE FLUID: Small pelvic free fluid. OTHER FINDINGS: Thick-walled 6.0 x 4.4 x 7.0 cm cystic structure noted within the cul-de-sac. IMPRESSION: Thick-walled 6.0 x 4.4 x 7.0 cm cystic structure noted within the cul-de-sac. Recommend clinical correlation and 6 week ultrasound follow-up. 2.0 x 1.5 x 1.4 cm right ovarian cyst with evidence of daughter cyst. Attention recommended on follow-up ultrasound. Small pelvic free fluid.
[2018-11-01 19:56] VITALS: BP 137/87; PULSE 60; RESP 20; TEMP 98; O2SAT 100
== END 2018-11-01 19:55 | disposition home or self-care (01) ==
LOC: C.ER 15:04
DX: K76.0 Fatty (change of) liver, not elsewhere classified (principal); N83.201 Unspecified ovarian cyst, right side; N94.89 Other specified conditions associated with female genital organs and menstrual cycle; I10 Essential (primary) hypertension; E66.01 Morbid (severe) obesity due to excess calories; Z68.41 Body mass index [BMI] 40.0-44.9, adult
CPT/HCPCS: 76705; 76830; 76856; 80053; 81001; 83690; 84703; 85025; 96361; 96374; 99285; J1885; J7030

== ENCOUNTER 2018-11-13 09:33 | Emergency (ER) | payer OTHER ==
[2018-11-13 09:33] VITALS: BMI 42.1
[2018-11-13] MEDS ORDERED: Sodium Chloride 0.9% 1,000 ML IV STA (10:25)
[2018-11-13] MEDS ORDERED: Iohexol 240 (50 ml) PO STA (10:25)
[2018-11-13 10:45] LABS: BASO % 0.5 % (0.0-2.0); EOS # 0.3 K/uL (0.0-0.7); EOS % 3.7 % (0.0-4.0); HEMOGLOBIN 13.5 g/dL (11.0-16.0); LYMPH # 1.6 K/uL (1.0-4.3); MEAN CORPUSCULAR HEMOGLOBIN 28.9 pg (27.0-31.0); MEAN CORPUSCULAR HGB CONC 32.3 g/dL (33.0-37.0); MEAN PLATELET VOLUME 8.3 fL (7.2-11.7); MONO # 0.5 K/uL (0.0-0.8); MONO % 6.4 % (0.0-10.0); NEUT # 5.8 K/uL (1.8-7.0); NEUT % 70.4 % (50.0-75.0); RBC 4.68 Mil/uL (3.80-5.20); RED CELL DISTRIBUTION WIDTH 13.7 % (11.5-14.5); WHITE BLOOD COUNT 8.3 K/uL (4.8-10.8)
[2018-11-13 10:46] LABS: MEAN CELL VOLUME 89.3 fL (81.0-99.0)
[2018-11-13] MEDS ORDERED: Sodium Chloride 0.9% 1,000 ML ONE (10:52)
[2018-11-13] MEDS ORDERED: Iohexol 240 (50 ml) ONE (10:52)
[2018-11-13 11:30] LABS: ALBUMIN 4.8 g/dL (3.5-5.0); ALT/SGPT 29 U/L (9-52); AST/SGOT 32 U/L (14-36); BLOOD UREA NITROGEN 13 mg/dL (7-17); CALCIUM 8.9 mg/dl (8.6-10.4); GFR NON-AFRICAN AMERICAN > 60; LIPASE 59 U/L (23-300)
[2018-11-13] MEDS ORDERED: Iodixanol 320 MG/ML 100 ML BOTTLE IV ONE (12:03)
--- NOTE | 2018-11-13 12:34 | C.PDOC ---
History Of Present Illness 22 year old female presents to ED with complaint of abdominal pain with associated nausea and vomiting that began 4 days ago. Patient states that pain is in the left lower quadrant of her abdomen. Patient describes the pain as sharp and states that she has a subjective fever. Patient denies chills, diaphoresis, dysuria, hematuria, melena, and bloody stools. Time Seen by Provider: 11/13/18 09:54 Chief Complaint (Nursing): Abdominal Pain History Per: Patient History/Exam Limitations: no limitations Onset/Duration Of Symptoms: Days (4) Current Symptoms Are (Timing): Still Present Location Of Pain/Discomfort: LLQ Radiation Of Pain To:: None Quality Of Discomfort: Sharp Associated Symptoms: Fever, Nausea, Vomiting. denies: Chills, Diarrhea, Urinary Symptoms Exacerbating Factors: None Alleviating Factors: None Past Medical History Reviewed: Historical Data, Nursing Documentation, Vital Signs Vital Signs: Last Vital Signs Temp Pulse 92 H 11/13/18 09:47 Resp 20 11/13/18 09:47 BP 128/73 11/13/18 09:47 Pulse Ox 98 11/13/18 09:47 - Medical History PMH: HTN Surgical History: No Surg Hx Family History: States: Unknown Family Hx - Social History Hx Alcohol Use: No Hx Substance Use: No - Immunization History Hx Tetanus Toxoid Vaccination: No Hx Influenza Vaccination: No Hx Pneumococcal Vaccination: No Review Of Systems Constitutional: Positive for: Fever. Negative for: Chills, Weakness Gastrointestinal: Positive for: Nausea, Vomiting, Abdominal Pain (left lower quadrant). Negative for: Melena, Hematochezia Genitourinary: Negative for: Dysuria, Hematuria Neurological: Negative for: Weakness, Numbness, Dizziness Physical Exam - Physical Exam Appears: Non-toxic, No Acute Distress Skin: Normal Color, Warm, Dry Head: Atraumatic, Normacephalic Neck: Normal ROM, Supple Chest: Symmetrical, No Deformity Cardiovascular: Rhythm Regular, No Murmur Respiratory: No Accessory Muscle Use, No Rales, No Rhonchi, No Wheezing Gastrointestinal/Abdominal: Tenderness (left lower quadrant), No Guarding, No Re bound Extremity: Bilateral: Atraumatic, Normal Color And Temperature, Normal ROM Neurological/Psych: Oriented x3, Normal Speech, Normal Cognition ED Course And Treatment - Laboratory Results Result Diagrams: 11/13/18 10:38 11/13/18 10:38 Lab Results: Total Bilirubin 0.5 mg/dL (0.2-1.3) 11/13/18 10:38 AST 32 U/L (14-36) 11/13/18 10:38 ALT 29 U/L (9-52) 11/13/18 10:38 Alkaline Phosphatase 72 U/L (38-126) 11/13/18 10:38 Total Protein 9.5 g/dL (6.3-8.3) H 11/13/18 10:38 Albumin 4.8 g/dL (3.5-5.0) 11/13/18 10:38 Globulin 4.6 gm/dL (2.2-3.9) H 11/13/18 10:38 Albumin/Globulin Ratio 1.0 (1.0-2.1) 11/13/18 10:38 Lipase 59 U/L (23-300) 11/13/18 10:38 O2 Sat by Pulse Oximetry: 98 (in RA) - CT Scan/US Abdomen/Pelvis CT Other Rad Studies (CT/US): Interpreted By Me, Read By Radiologist CT/US Interpretation: Melchor MD. Patient NameIFTIKHAR COTA / [id number] Barraza MD. Study [id number] 14:05:01Transcriber. Sex / AgeF / 22YApproverRe Barraza MD. [facility] HospitalApproval [id number] 14:52:48. My Comment. Study Comments. Report. PROCEDURE: CT Abdomen and Pelvis with oral and IV contrast. HISTORY: LLQ abd pain. COMPARISON: CT abdomen and pelvis without contrast performed 10/29/18. TECHNIQUE: Contiguous axial images of the abdomen and pelvis. Oral and IV contrast was administered. Coronal and Sagittal reformats generated and reviewed. Contrast dose: 100 mL Visipaque 320 IV. Radiation dose: Total exam DLP = 1217.47 mGy-cm. This CT exam was performed using one or more of the following dose reduction techniques: Automated exposure control, adjustment of the mA and/or kV according to patient size, and/or use of iterative reconstruction technique. FINDINGS: LOWER THORAX: No visible consolidation, pleural effusion, or pneumothorax. LIVER: Unremarkable. GALLBLADDER AND BILE DUCTS: Unremarkable. PANCREAS: Unremarkable. SPLEEN: Unremarkable. ADRENALS: Unremarkable. KIDNEYS AND URETERS: The kidneys enhance symmetrically. No hydronephrosis or obstructing renal calculus. BLADDER: The urinary bladder appears unremarkable. REPRODUCTIVE: Uterus is present. APPENDIX: The appendix appears within normal limits of caliber. No secondary signs of acute appendicitis. BOWEL: The stomach is nondistended. The bowel loops appear within normal limits of caliber without evidence of intestinal obstruction. PERITONEUM: No definite free air. LYMPH NODES: No bulky lymphadenopathy identified. VASCULATURE: No aortic aneurysm. No atherosclerotic calcification or mural plaque present. BONES: No acute osseous abnormality is detected. OTHER FINDINGS: 6.5 x 7.1 cm rounded fluid collection re-identified within the cul-de-sac. IMPRESSION: 6.5 x 7.1 cm rounded fluid collection re-identified within the cul-de-sac. Correlate clinically and continued follow-up with transvaginal pelvic ultrasound recommended. Pelvic US Other Rad Studies (CT/US): Read By Radiologist, Radiology Report Reviewed CT/US Interpretation: Accession No. : [id number]. Patient Name / ID : IFTIKHAR ORTIZ / [id number]. Exam Date : 11/13/2018 16:42:35 ( Approved ). Study Comment : Sex / Age : F / 22Y. Creator : eR Barraza MD. Dictator : Re Barraza MD. Government Affairs Fellow : Sales And Training Specialist : Re Barraza MD. Approver2 : Report Date : 11/13/2018 18:06:58. My Comment : . Date of service: 11/13/2018. HISTORY: LLQ pain, CT shows round fluid collection. COMPARISON: CT of the abdomen and pelvis with contrast performed 11/13/18, pelvic ultrasound performed 11/01/18. TECHNIQUE: Real-time transabdominal pelvic ultrasound was performed. In addition a transvaginal pelvic ultrasound was necessary to better depict pelvic anatomy. FINDINGS: UTERUS: Measures 6.9 x 3.0 x 3.9 cm. Retroverted. ENDOMETRIUM: Measures 4 mm in diameter. CERVIX: No cervical abnormality identified. RIGHT OVARY: Measures 3.8 x 2.8 x 2.9 cm. Blood flow is demonstrated. Complex follicle/cyst measures 1.6 x 1.3 x 1.1 cm. LEFT OVARY: Measures 2.8 x 2.6 x 2.8 cm. Blood flow is demonstrated. Complex follicle/cyst measures 1.6 x 1.1 x 1.6 cm. FREE FLUID: No significant free fluid noted. OTHER FINDINGS: Cystic structure re- identified within the cul-de-sac measuring approximately 6.1 x 4.5 x 7.4 cm. IMPRESSION: Cystic structure re-identified within the cul-de-sac measuring approximately 6.1 x 4.5 x 7.4 cm. Recommend clinical correlation and close interval follow-up as indicated. Bilateral complex ovarian follicles/cysts. Progress Note: Abdomen/Pelvis CT ordered for patient. Patient given Pepcid IVP, IV fluids, and Zofran IVP. Labs ordered with UA and U-preg. Disposition - Disposition Referrals: [facility] [Outside] [facility] [Outside] [facility] [Outside] [facility] [Outside] [facility] [Outside] Disposition: HOME/ ROUTINE Disposition Time: 18:41 Condition: STABLE Additional Instructions: Follow up with OBGYN within 1-2 days. Return to ED if feel worse. Prescriptions: Naproxen [Naprosyn] 1 tab PO BID PRN #25 tab PRN Reason: Pain Instructions: Ovarian Cyst (DC) Forms: [employer] (Russian) - Clinical Impression Clinical Impression: Ovarian cyst, Pelvic cyst - PA / TAPER MACHINE / Resident Statement MD/DO has reviewed & agrees with the documentation as recorded. (Kaylyn Boyd) - Scribe Statement The provider has reviewed the documentation as recorded by the Scribe (Kaylyn Boyd) All medical record entries made by the Scribe were at my direction and personally dictated by me. I have reviewed the chart and agree that the record accurately reflects my personal performance of the history, physical exam, medical decision making, and the department course for this patient. I have also personally directed, reviewed, and agree with the discharge instructions and disposition.
[2018-11-13 14:21] LABS: HCG,QUALITATIVE URINE NEGATIVE (NEGATIVE)
[2018-11-13 14:26] LABS: SQUAMOUS EPITHIAL 1 /hpf (0-5); URINE AMORPHOUS SEDIMENT RARE /ul (<OCC); URINE BACTERIA RARE (<OCC); URINE BILIRUBIN NEGATIVE (NEGATIVE); URINE BLOOD 3+ (NEGATIVE); URINE CLARITY Hazy (Clear); URINE COLOR Yellow (YELLOW); URINE GLUCOSE (UA) NORMAL (Normal); URINE HYALINE CAST 0-2 /lpf (0-2); URINE LEUKOCYTE ESTERASE NEG Leu/uL (Negative); URINE PROTEIN 1+ mg/dL (NEGATIVE); URINE UROBILINOGEN NORMAL mg/dL (0.2-1.0)
--- NOTE | 2018-11-13 14:56 | CT ---
PROCEDURE: CT Abdomen and Pelvis with oral and IV contrast. HISTORY: LLQ abd pain COMPARISON: CT abdomen and pelvis without contrast performed 10/29/18 TECHNIQUE: Contiguous axial images of the abdomen and pelvis. Oral and IV contrast was administered. Coronal and Sagittal reformats generated and reviewed. Contrast dose: 100 mL Visipaque 320 IV Radiation dose: Total exam DLP = 1217.47 mGy-cm. This CT exam was performed using one or more of the following dose reduction techniques: Automated exposure control, adjustment of the mA and/or kV according to patient size, and/or use of iterative reconstruction technique. FINDINGS: LOWER THORAX: No visible consolidation, pleural effusion, or pneumothorax. LIVER: Unremarkable. GALLBLADDER AND BILE DUCTS: Unremarkable. PANCREAS: Unremarkable. SPLEEN: Unremarkable. ADRENALS: Unremarkable. KIDNEYS AND URETERS: The kidneys enhance symmetrically. No hydronephrosis or obstructing renal calculus. BLADDER: The urinary bladder appears unremarkable. REPRODUCTIVE: Uterus is present. APPENDIX: The appendix appears within normal limits of caliber. No secondary signs of acute appendicitis. BOWEL: The stomach is nondistended. The bowel loops appear within normal limits of caliber without evidence of intestinal obstruction. PERITONEUM: No definite free air. LYMPH NODES: No bulky lymphadenopathy identified. VASCULATURE: No aortic aneurysm. No atherosclerotic calcification or mural plaque present. BONES: No acute osseous abnormality is detected. OTHER FINDINGS: 6.5 x 7.1 cm rounded fluid collection re-identified within the cul-de-sac. IMPRESSION: 6.5 x 7.1 cm rounded fluid collection re-identified within the cul-de-sac. Correlate clinically and continued follow-up with transvaginal pelvic ultrasound recommended.
--- NOTE | 2018-11-13 18:10 | US ---
Date of service: 11/13/2018 HISTORY: LLQ pain, CT shows round fluid collection COMPARISON: CT of the abdomen and pelvis with contrast performed 11/13/18, pelvic ultrasound performed 11/01/18 TECHNIQUE: Real-time transabdominal pelvic ultrasound was performed. In addition a transvaginal pelvic ultrasound was necessary to better depict pelvic anatomy. FINDINGS: UTERUS: Measures 6.9 x 3.0 x 3.9 cm. Retroverted. ENDOMETRIUM: Measures 4 mm in diameter. CERVIX: No cervical abnormality identified. RIGHT OVARY: Measures 3.8 x 2.8 x 2.9 cm. Blood flow is demonstrated. Complex follicle/cyst measures 1.6 x 1.3 x 1.1 cm. LEFT OVARY: Measures 2.8 x 2.6 x 2.8 cm. Blood flow is demonstrated. Complex follicle/cyst measures 1.6 x 1.1 x 1.6 cm. FREE FLUID: No significant free fluid noted. OTHER FINDINGS: Cystic structure re-identified within the cul-de-sac measuring approximately 6.1 x 4.5 x 7.4 cm. IMPRESSION: Cystic structure re-identified within the cul-de-sac measuring approximately 6.1 x 4.5 x 7.4 cm. Recommend clinical correlation and close interval follow-up as indicated. Bilateral complex ovarian follicles/cysts.
[2018-11-13 19:07] VITALS: BP 145/78; PULSE 89; RESP 17; TEMP 98.6; O2SAT 99
== END 2018-11-13 19:07 | disposition home or self-care (01) ==
LOC: C.ER 09:33
DX: N83.202 Unspecified ovarian cyst, left side (principal); N83.201 Unspecified ovarian cyst, right side; N94.89 Other specified conditions associated with female genital organs and menstrual cycle; I10 Essential (primary) hypertension
CPT/HCPCS: 74177; 76830; 76856; 80053; 81001; 81025; 83690; 84703; 85025; 96361; 96374; 96375; 99285; J2405; J7030; Q9966; Q9967

== ENCOUNTER 2018-12-08 09:58 | Emergency (ER) | payer OTHER ==
[2018-12-08 09:58] VITALS: BMI 42.1
[2018-12-08 10:09] VITALS: BP 143/86; PULSE 70; RESP 17; TEMP 98.1; O2SAT 100
--- NOTE | 2018-12-08 10:28 | C.PDOC ---
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 Pt states she slipped and fell backwards on the wet bathroom floor today. She avoided hitting her head but injured the left side of her neck and left arm. Pt denies LOC, headache, dizziness, weakness and paresthesia. Pt also states that her period is going on longer than usual, typically lasting 3 days (started on Tuesday). It has been 5 days and the bleeding has not stopped. She denies vaginal discharge, menorrhagia, of dysuria. Pt wants to know if there is any medication she can take to stop the bleeding. I advised the patient that there is nothing I can give her to stop the bleeding and that it will stop on its own. Chief Complaint (Nursing): Upper Extremity Problem/Injury History Per: Patient History/Exam Limitations: no limitations Onset/Duration Of Symptoms: Hrs Current Symptoms Are (Timing): Still Present Quality: "Pain" Severity: Moderate Pain Scale Rating Of: 6 Exacerbating Factor(s): Movement Past Medical History Reviewed: Historical Data, Nursing Documentation, Vital Signs Vital Signs: Last Vital Signs Temp 98.1 F 12/08/18 10:02 Pulse 70 12/08/18 10:02 Resp 17 12/08/18 10:02 BP 143/86 12/08/18 10:02 Pulse Ox 100 12/08/18 10:02 - Medical History PMH: HTN Family History: States: Unknown Family Hx - Social History Hx Alcohol Use: No Hx Substance Use: No - Immunization History Hx Tetanus Toxoid Vaccination: No Hx Influenza Vaccination: No Hx Pneumococcal Vaccination: No Review Of Systems Cardiovascular: Negative for: Chest Pain, Palpitations Respiratory: Negative for: Shortness of Breath Gastrointestinal: Negative for: Nausea, Vomiting Musculoskeletal: Positive for: Neck Pain (left ), Arm Pain (left ) Skin: Negative for: Bruising Neurological: Negative for: Weakness, Altered Mental Status, Headache, Dizziness, Other (LOC; Paresthesia) Physical Exam - Physical Exam Appears: Non-toxic, No Acute Distress Skin: Warm, Dry, Ecchymosis (medial aspect of the distal forearm ) Head: Atraumatic, Normacephalic, No Tenderness, No Swelling, No Abrasion, No Laceration Eye(s): bilateral: Normal Inspection, PERRL Ear(s): Bilateral: Normal Nose: Normal, No Discharge Oral Mucosa: Moist Tongue: Normal Appearing Throat: No Erythema Neck: Normal ROM, Trachea Midline, No Midline Cervical Tenderness, No Paracervical Tenderness, Supple Chest: Symmetrical, No Deformity, No Tenderness Cardiovascular: Rhythm Regular Respiratory: Normal Breath Sounds, No Accessory Muscle Use Gastrointestinal/Abdominal: Soft, No Tenderness Back: No CVA Tenderness Extremity: Normal ROM (x4), Tenderness (to the medial aspect of distal forearm), Capillary Refill (<2 sec ), No Deformity, No Swelling Extremity: Bilateral: Normal Color And Temperature, Normal ROM Pulses: Left Brachial: Normal, Right Brachial: Normal, Left Radial: Normal, Right Radial: Normal Neurological/Psych: Oriented x3, Normal Speech, Normal Cognition, Normal Motor, Normal Sensation, Other (neuro intact ) ED Course And Treatment O2 Sat by Pulse Oximetry: 100 (RA) Pulse Ox Interpretation: Normal - Other Rad Cervical Spine X-Ray: Viewed By Me, Read By Radiologist Interpretation: Accession No. : [id number]. Patient Name / ID : IFTIKHAR ORTIZ / [id number]. Exam Date : 12/08/2018 10:27:39 ( Approved ). Study Comment : Sex / Age : F / 22Y. Creator : Elieser Harrington MD. Dictator : Elieser Harrington MD. Venue Attendant : Beater Tender : Elieser Harrington MD. Approver2 : Report Date : 12/08/2018 12:06:19. My Comment : . Date of service: 12/08/2018. PROCEDURE: Cervical Spine Radiographs. HISTORY: Pain. COMPARISON: None available. TECHNIQUE: 3 views obtained. FINDINGS: BONES: Alignment maintained. No fracture. Dens Intact. DISC SPACES: Normal. SOFT TISSUES: Normal. No prevertebral soft tissue swelling. OTHER FINDINGS: None. IMPRESSION: Normal cervical spine radiographs forearm X-Ray: Viewed By Me, Read By Radiologist Interpretation: Accession No. : [id number]. Patient Name / ID : IFTIKHAR DAYHER / [id number]. Exam Date : 12/08/2018 10:28:10 ( Approved ). Study Comment : Sex / Age : F / 22Y. Creator : Elieser Harrington MD. Dictator : Elieser Harrington MD. Venue Attendant : Beater Tender : Elieser Harrington MD. Approver2 : Report Date : 12/08/2018 12:03:59. My Comment : . Date of service: 12/08/2018. PROCEDURE: Radiographs of the Left Forearm. HISTORY: s/p fall. COMPARISON: None available. TECHNIQUE: Frontal and lateral views obtained. 2 views obtained. FINDINGS: BONES: No fracture or destructive lesion. JOINT SPACES: Unremarkable. OTHER FINDINGS: None. IMPRESSION: Unremarkable radiographs of the left forearm. left wrist X-Ray: Viewed By Me, Read By Radiologist Interpretation: Accession No. : [id number]. Patient Name / ID : IFTIKHAR MICHAEL / [id number]. Exam Date : 12/08/2018 10:28:00 ( Approved ). Study Comment : Sex / Age : F / 22Y. Creator : Elieser Harrington MD. Dictator : Elieser Harrington MD. Venue Attendant : Beater Tender : Elieser Harrington MD. Approver2 : Report Date : 12/08/2018 12:04:44. My Comment : . Date of service: 12/08/2018. PROCEDURE: Left Wrist Radiographs. . HISTORY: s/p fall. COMPARISON: None. TECHNIQUE: 4 views obtained. FINDINGS: BONES: Normal. No fracture. JOINTS: Normal. No dislocation. SOFT TISSUES: Normal. OTHER FINDINGS: None. IMPRESSION: Normal left wrist radiographs. Medical Decision Making Medical Decision Making: Plans: -- Cervical spine XR-neg -- forearm XR -neg -- wrist XR -neg -- ibuprofen given now pt advised to continue Motrin as needed for pain Rest, ice, compression, and elevation follow up in ortho clinic on Tuesday if pain persists Patient verbalizes understanding and is in agreement with plan. Patient is stable for discharge. Disposition Counseled Patient/Family Regarding: Studies Performed, Diagnosis, Need For Followup, Rx Given - Disposition Referrals: [facility] [Outside] Disposition: HOME/ ROUTINE Disposition Time: 12:30 Condition: STABLE Additional Instructions: Continue Motrin as needed for pain Rest, ice, compression, and elevation follow up in ortho clinic on Tuesday if pain persists Return to ED if symptoms worsen Prescriptions: Ibuprofen [Motrin] 600 mg PO Q8 #30 tab Instructions: Muscle and Bone Pain (DC), Contusion (DC) Forms: [employer] (Danish) Print Language: DIVEHI - Clinical Impression Clinical Impression: Contusion, Neck pain on left side, Arm pain, left - PA / SUPPLY PERSON / Resident Statement MD/DO has reviewed & agrees with the documentation as recorded. - Scribe Statement The provider has reviewed the documentation as recorded by the Elida Desir Do All medical record entries made by the Shmuelibpatt were at my direction and personally dictated by me. I have reviewed the chart and agree that the record accurately reflects my personal performance of the history, physical exam, medical decision making, and the department course for this patient. I have also personally directed, reviewed, and agree with the discharge instructions and disposition.
--- NOTE | 2018-12-08 11:37 | C.PDOC ---
Chief Complaint (Nursing): Upper Extremity Problem/Injury Past Medical History Vital Signs: Last Vital Signs Temp 98.1 F 12/08/18 10:02 Pulse 70 12/08/18 10:02 Resp 17 12/08/18 10:02 BP 143/86 12/08/18 10:02 Pulse Ox 100 12/08/18 10:02 - Medical History PMH: HTN Family History: States: Unknown Family Hx - Social History Hx Alcohol Use: No Hx Substance Use: No - Immunization History Hx Tetanus Toxoid Vaccination: No Hx Influenza Vaccination: No Hx Pneumococcal Vaccination: No ED Course And Treatment O2 Sat by Pulse Oximetry: 100 Disposition Counseled Patient/Family Regarding: Diagnosis, Need For Followup, Rx Given - Disposition Referrals: [facility] [Outside] Disposition: HOME/ ROUTINE Disposition Time: 11:37 Condition: STABLE Additional Instructions: Continue Motrin as needed for pain Rest, ice, compression, and elevation follow up in ortho clinic on Tuesday if pain persists Return to ED if symptoms worsen Prescriptions: Ibuprofen [Motrin] 600 mg PO Q8 #30 tab
--- NOTE | 2018-12-08 12:07 | RAD ---
Date of service: 12/08/2018 PROCEDURE: Radiographs of the Left Forearm HISTORY: s/p fall COMPARISON: None available. TECHNIQUE: Frontal and lateral views obtained. 2 views obtained. FINDINGS: BONES: No fracture or destructive lesion. JOINT SPACES: Unremarkable. OTHER FINDINGS: None. IMPRESSION: Unremarkable radiographs of the left forearm.
--- NOTE | 2018-12-08 12:08 | RAD ---
Date of service: 12/08/2018 PROCEDURE: Left Wrist Radiographs. HISTORY: s/p fall COMPARISON: None. TECHNIQUE: 4 views obtained. FINDINGS: BONES: Normal. No fracture. JOINTS: Normal. No dislocation. SOFT TISSUES: Normal. OTHER FINDINGS: None. IMPRESSION: Normal left wrist radiographs.
--- NOTE | 2018-12-08 12:09 | RAD ---
Date of service: 12/08/2018 PROCEDURE: Cervical Spine Radiographs. HISTORY: Pain. COMPARISON: None available. TECHNIQUE: 3 views obtained. FINDINGS: BONES: Alignment maintained. No fracture. Dens Intact. DISC SPACES: Normal. SOFT TISSUES: Normal. No prevertebral soft tissue swelling. OTHER FINDINGS: None. IMPRESSION: Normal cervical spine radiographs
== END 2018-12-08 11:43 | disposition home or self-care (01) ==
LOC: C.ER 09:58
DX: S50.12XA Contusion of left forearm, initial encounter (principal); W01.0XXA Fall on same level from slipping, tripping and stumbling without subsequent striking against object, initial encounter; Y93.E1 Activity, personal bathing and showering; Y92.002 Bathroom of unspecified non-institutional (private) residence as the place of occurrence of the external cause; M54.2 Cervicalgia; M79.602 Pain in left arm

== ENCOUNTER 2019-01-01 15:24 | Emergency (ER) | payer OTHER ==
[2019-01-01 15:24] VITALS: BMI 42.1
[2019-01-01 15:31] VITALS: BP 140/85; PULSE 92; RESP 18; TEMP 98.2; O2SAT 99
--- NOTE | 2019-01-01 16:52 | C.PDOC ---
History Of Present Illness 23 y/o female presents to the ER complaining of right knee pain which has been present since yesterday. Patient denies having trauma, weakness, and numbness. Patient is also complaining of dry cough which has been present for the past few days. Denies having fever and chills. Time Seen by Provider: 01/01/19 16:06 Chief Complaint (Nursing): Lower Extremity Problem/Injury History Per: Patient History/Exam Limitations: no limitations Onset/Duration Of Symptoms: Days Current Symptoms Are (Timing): Still Present Severity: Moderate Past Medical History Reviewed: Historical Data, Nursing Documentation, Vital Signs Vital Signs: Last Vital Signs Temp 98.2 F 01/01/19 15:28 Pulse 92 H 01/01/19 15:28 Resp 18 01/01/19 15:28 BP 140/85 01/01/19 15:28 Pulse Ox 99 01/01/19 15:28 - Medical History PMH: HTN Surgical History: No Surg Hx Family History: States: No Known Family Hx - Social History Hx Alcohol Use: No Hx Substance Use: No - Immunization History Hx Tetanus Toxoid Vaccination: No Hx Influenza Vaccination: No Hx Pneumococcal Vaccination: No Review Of Systems Except As Marked, All Systems Reviewed And Found Negative. Constitutional: Negative for: Fever, Chills ENT: Negative for: Throat Pain Respiratory: Positive for: Cough (dry cough) Musculoskeletal: Positive for: Other (right knee pain) Neurological: Negative for: Weakness, Numbness Physical Exam - Physical Exam Appears: No Acute Distress, Other (morbidly obese) Skin: Normal Color, Warm, Dry Head: Atraumatic, Normacephalic Eye(s): bilateral: Normal Inspection Ear(s): Bilateral: Normal Nose: Normal Oral Mucosa: Moist Throat: Normal, No Erythema, No Exudate Neck: Supple Chest: Symmetrical Cardiovascular: Rhythm Regular Respiratory: Normal Breath Sounds, No Rales, No Rhonchi, No Wheezing Extremity: Normal ROM, Tenderness (diffuse tenderness in right knee), No Swelling Neurological/Psych: Oriented x3, Normal Speech, Normal Motor, Normal Sensation ED Course And Treatment O2 Sat by Pulse Oximetry: 99 (RA) Pulse Ox Interpretation: Normal - Other Rad CXR X-Ray: Viewed By Me, Read By Radiologist Interpretation: Date of service: 01/01/2019. HISTORY: Dry cough. COMPARISON: 10/26/2018. TECHNIQUE: Chest PA and lateral. FINDINGS: LINES AND TUBES: None. LUNG AND PLEURA: The lungs are well inflated and clear. No pleural effusion or pneumothorax. HEART AND MEDIASTINUM: The heart is not enlarged. No aortic atherosclerotic calcifications present. The hilar and mediastinal contours are within normal limits. SKELETAL STRUCTURES: The bony structures are within normal limits for the patient's age. VISUALIZED UPPER ABDOMEN: Normal. OTHER FINDINGS: None. IMPRESSION: No active pulmonary disease. X-Ray-Right Knee X-Ray: Viewed By Me, Read By Radiologist Interpretation: Date of service: 01/01/2019. PROCEDURE: Right Knee Radiographs. HISTORY: atraumatic pain. COMPARISON: 10/26/2018. TECHNIQUE: 3 views obtained. FINDINGS: BONES: Normal. No fracture. JOINTS: There is mild marginal spurring. There is mild reduced medial compartment joint space. JOINT EFFUSION: None. OTHER FINDINGS: None. IMPRESSION: No acute fracture or dislocation. Mild marginal spurring and reduced medial compartment joint space. Small suprapatellar joint. Effusion Progress Note: CXR and X-Ray-Right Knee are negative. Patient treated with Motrin PO. Knee brace has been applied by [email or web address].Patient has been discharged and instructed to follow up in clinic in 2-3 days. Disposition - Disposition Referrals: [facility] [Outside] Disposition: HOME/ ROUTINE Disposition Time: 16:52 Condition: STABLE Additional Instructions: Follow up in Clinic within 2-3 days. Return to ED if feel worse. 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 - Scribe Statement The provider has reviewed the documentation as recorded by the Elida Argueta Provider Attestation All medical record entries made by the Scribe were at my direction and personally dictated by me. I have reviewed the chart and agree that the record accurately reflects my personal performance of the history, physical exam, medical decision making, and the department course for this patient. I have also personally directed, reviewed, and agree with the discharge instructions and disposition.
--- NOTE | 2019-01-01 16:53 | RAD ---
Date of service: 01/01/2019 PROCEDURE: Right Knee Radiographs. HISTORY: atraumatic pain COMPARISON: 10/26/2018. TECHNIQUE: 3 views obtained. FINDINGS: BONES: Normal. No fracture. JOINTS: There is mild marginal spurring. There is mild reduced medial compartment joint space. JOINT EFFUSION: None. OTHER FINDINGS: None. IMPRESSION: No acute fracture or dislocation. Mild marginal spurring and reduced medial compartment joint space. Small suprapatellar joint. Effusion
== END 2019-01-01 17:22 | disposition home or self-care (01) ==
LOC: C.ER 15:24
DX: M25.561 Pain in right knee (principal); J06.9 Acute upper respiratory infection, unspecified; I10 Essential (primary) hypertension